=== PATIENT | female | born 1980 | race Caucasian/White ===

== ENCOUNTER 2018-09-13 00:20 | Emergency (ER) | payer OTHER ==
[~2018-09-13] VITALS: Ht 149.9 cm; Wt 54.4 kg
[2018-09-13 00:43] VITALS: BP_SYST 161
--- NOTE | 2018-09-13 00:43 | NUR ---
Pt c/o Right foot pain s/p tripping while walking. Localizes pain to top of foot. No deformity or swelling noted.
--- NOTE | 2018-09-13 00:43 | NUR ---
Pt placed to ER bed 02. Report given to MAGEN Espinosa.
--- NOTE | 2018-09-13 01:09 | NUR ---
ER Dr. Cabrera at bedside examining patient.
[2018-09-13 01:36] VITALS: BP_SYST 152
--- NOTE | 2018-09-13 01:37 | NUR ---
Patient given written and verbal discharge instructions and verbalizes understanding. ER MD discussed with patient the results and treatment provided. Patient in stable condition. ID arm band removed. Rx of Naproxen given. Patient educated on pain management and to follow up with PMD. Pain Scale 0. Opportunity for questions provided and answered. Medication side effect fact sheet provided.
== END 2018-09-13 01:37 | disposition home or self-care (01) ==
LOC: SED 00:20
DX: S93.401A Sprain of unspecified ligament of right ankle, initial encounter (principal); S93.601A Unspecified sprain of right foot, initial encounter; R03.0 Elevated blood-pressure reading, without diagnosis of hypertension; Z88.8 Allergy status to other drugs, medicaments and biological substances; X50.9XXA Other and unspecified overexertion or strenuous movements or postures, initial encounter; Y93.01 Activity, walking, marching and hiking; Y92.89 Other specified places as the place of occurrence of the external cause; Y99.8 Other external cause status
CPT/HCPCS: 99283